=== PATIENT | female | born 1975 | race Caucasian/White ===

== ENCOUNTER 2017-07-18 02:25 | Emergency (ER) | payer OTHER, BC ==
[2017-07-18] MEDS ORDERED: TETANUS AND DIPHTHERIA TOXOID 0.5 ML DISP.SYRIN IM ONE (02:40)
--- NOTE | 2017-07-18 02:44 | PDOC ---
Post Exposure HPI - General Chief Complaint: Blood/Body Fluid Exposure [facility] Stated Complaint: LACERATION Time Seen by Provider: 07/18/17 02:31 History Source: Patient Exam Limitations: No Limitations - History of Present Illness Initial Comments: 07/18/17 02:41 42 year old female [employer] employee underwriting technician in the L&D c/p small puncture lac to cantu aspect of the right hand while assisting during a , source patient negative for HIV/ Hep B/ Hep C(01/2017) as per L&D records. wound irrigation and aspirated prior to arrival. Timing: just prior to arrival Past History - Past Medical History Allergies/Adverse Reactions: Allergies Allergy/AdvReac Type Severity Reaction Status Date / Time No Known Allergies Allergy Verified 07/18/17 02:26 Home Medications: Ambulatory Orders NK [No Known Home Medication] 04/21/15 - Surgical History Cholecystectomy: (tubal ligation) - Suicide/Smoking/Psychosocial Hx Smoking History: Never smoked Have you smoked in the past 12 months: No Information on smoking cessation initiated: No Hx Alcohol Use: No Drug/Substance Use Hx: No Review of Systems - Review of Systems Able to Perform ROS?: Yes Is the patient limited [place] proficient: No Constitutional: No: Symptoms Reported, See HPI, Chills, Diaphoresis, Fever, Loss of Appetite, Malaise, Night Sweats, Weakness, Weight Stable, Unintentional Wgt. Loss, Unexplained wgt Loss, Other HEENTM: No: Symptoms Reported, See HPI, Eye Pain, Blurred Vision, Tearing, Recent change in vision, Double Vision, Cataracts, Ear Pain, Ocular Prothesis, Ear Discharge, Nose Pain, Nose Congestion, Tinnitus, Nose Bleeding, Hearing Loss , Throat Pain, Throat Swelling, Mouth Pain, Dental Problems, Difficulty Swallowing, Mouth Swelling, Other Respiratory: No: Symptoms reported, See HPI, Cough, Orthopnea, Shortness of Breath, SOB with Exertion, SOB at Rest, Stridor, Wheezing, Productive cough, Hemoptysis, Other *Physical Exam - Vital Signs Last Vital Signs Temp Pulse Resp BP Pulse Ox 72 14 125/87 99 07/18/17 02:26 07/18/17 02:26 07/18/17 02:26 07/18/17 02:26 - Physical Exam General Appearance: Yes: Appropriately Dressed Extremity: positive: Normal Capillary Refill, Normal Inspection, Other (puncture / ~.25cm lacertaion to cantu aspect of right hand proximal to thumb and index finger. wound clean dry) Integumentary: positive: Normal Color, Dry, Warm Neurologic: positive: Fully Oriented, Alert Post Exposure - ED Protocol - Exposure Treatment Washing/Decontamination: Soap/Water Source Patient HIV Status:: HIV Negative Is PEP indicated?: No Prophylaxis for HIV discussed?: Yes Prophylaxis given?: No Baseline bloods drawn prophylaxis:(use *Exposure-Hosp Emp): Yes Additional Treatment:: DT - Referrals Employee Referred to Employee Health:: Yes City Worker referred to Infection Control Dept.: (n/a) Progress Note - Progress Note Progress Note: A: post exposure visit P; source patient hepb, hep C/ HIV negative. will not recommend PEP at this time. will draw post exposure labs. patient to follow up in employee. *DC/Admit/Observation/Transfer Diagnosis at time of Disposition: Patient exposure to body fluids - Discharge Dispostion Disposition: HOME - Referrals Referrals: Go Jenkins [Primary Care Provider] - - Patient Instructions Printed Discharge Instructions: How to Handle Body Fluid Exposure -- Healthcare Worker Additional Instructions: please follow up with employee health as soon as possible. - Post Discharge Activity Forms/Work/School Notes: Back to Work
[2017-07-18 02:48] VITALS: BP 125/87; PULSE 72; BMI 25.8
[2017-07-18 02:55] LABS: BASOPHIL 0.6 % (0-2.0); MCH 31.4 pg (25.7-33.7); MCHC 34.4 g/dl (32.0-36.0); MEAN CELL VOLUME 91.2 fl (80-96); NEUTROPHILS 71.9 % (42.8-82.8); PLATELET COUNT 267 K/MM3 (134-434); RDW 12.5 % (11.6-15.6); WHITE BLOOD COUNT 13.8 K/mm3 (4.0-10.0)
[2017-07-18 03:37] LABS: ALBUMIN 4.1 g/dl (3.4-5.0); ANION GAP 8 (8-16); CALCIUM 9.1 mg/dL (8.5-10.1); CO2 27 mmol/L (21-32); CREATININE 0.5 mg/dL (0.55-1.02); GLUCOSE,RANDOM 89 mg/dL (74-106); SGOT/AST 16 U/L (15-37); SGPT/ALT 24 U/L (12-78); URIC ACID 4.1 mg/dL (2.6-7.2)
[2017-07-18 03:40] LABS: ALK PHOS 61 U/L (45-117); BILIRUBIN,TOTAL 0.4 mg/dL (0.2-1.0); CHOLESTEROL 136 mg/dL (50-200); LDH 168 U/L (84-246); PHOSPHOROUS 3.4 mg/dL (2.5-4.9); TOT PROT 7.2 g/dl (6.4-8.2)
[2017-07-18 03:49] LABS: HIV 1 & 2 AB NEGATIVE; HIV 1 AGp24 NEGATIVE
[2017-07-19 08:07] LABS: HEP B SURFACE AB Reactive (.)
== END 2017-07-18 03:05 | disposition home or self-care (01) ==
LOC: JER 02:25
PROC: 3E0234Z Introduction of Serum, Toxoid and Vaccine into Muscle, Percutaneous Approach (ICD-10-PCS; principal; 2017-07-18)
DX: Z77.21 Contact with and (suspected) exposure to potentially hazardous body fluids (principal); X58.XXXA Exposure to other specified factors, initial encounter; Y93.89 Activity, other specified; Y92.234 Operating room of hospital as the place of occurrence of the external cause; Y99.0 Civilian activity done for income or pay
CPT/HCPCS: 36415; 80053; 82465; 82977; 83615; 84100; 84478; 84550; 85025; 86704; 86706; 86803; 87340; 87389; 99282-25